=== PATIENT | male | born 1940 | race Caucasian/White ===

== ENCOUNTER 2018-01-16 12:06 | Observation (INO) ==
[2018-01-16] MEDS ORDERED: Metoprolol Tartrate 25 MG Tablet PO SCH (13:04)
[2018-01-16] MEDS ORDERED: Chlorhexidine Gluconate 2% 1 Pack (2 Cloths) TOPICAL SCH (13:04)
[2018-01-16] MEDS ORDERED: ceFAZolin 2 GM Premix Inj 2 GM/50 ML PIGGYBACK IV.SIG SCH (14:00)
[2018-01-16] MEDS ORDERED: Sodium Chlor 0.9% Inj 500 ML IV.SIG SCH (14:00)
[2018-01-16] MEDS ORDERED: Bupivacaine/Epinephrine 0.5% Inj 50 ML Vial ONE (15:18)
[2018-01-16] MEDS ORDERED: Gelatin Size 100 Topical Foam ONE (15:18)
[2018-01-16] MEDS ORDERED: Thrombin Topical Soln 5,000 UNIT Vial TOPICAL ONE (15:18)
[2018-01-16] MEDS ORDERED: methylPREDNISolone acetate 40 MG/ML VIAL ONE ×2 (15:18→15:26)
[2018-01-16] MEDS ORDERED: Neostigmine Inj 5 MG/5 ML Syringe IV.PUSH ONE (15:48)
[2018-01-16] MEDS ORDERED: Glycopyrrolate Inj 1 MG/5 ML Syringe IV.PUSH ONE (15:48)
[2018-01-16] MEDS ORDERED: Bisacodyl 10 MG Supp RECTAL PRN (16:12)
[2018-01-16] MEDS ORDERED: Acetaminophen 500 MG Tablet PO PRN (16:12)
--- NOTE | 2018-01-16 17:52 | P.OP ---
Preoperative Diagnosis: Lumbar spinal stenosis Postoperative Diagnosis: Lumbar spinal stenosis Date of procedure: 01/16/18 Procedure: Right L5-S1 hemilaminectomy, mesiofacetectomy, foraminotomy, microsurgical resection of the disk Anesthesia: FREDY Surgeon: David Griffith MD Turpentine Distiller: Marycarmen Payne Pathology: none sent Operation and Findings: INDICATIONS FOR THE SURGICAL PROCEDURE Mr Grigsby is a 77 year-old male who presented with intractable mechanical back pain and clinical evidence of right S1 lower extremity radiculopathy. He was found to have a disk herniation and extrusion significant stenosis with significant mass effect on the neural structures which correlated with the clinical symptoms. The patient has failed maximum nonsurgical management including multiple modalities of conservative treatment as well as pain management interventions by an interventional pain specialist. A surgical decompression were indicated as a last resort. The oxpl-[id number] details of the procedure, indications, alternatives, risks and potential complications were fully discussed with the patient. The patient fully understood. All the questions were answered. No guarantees were given. The patient voiced requesting the procedure and signed informed consents. He was offered the alternative of delaying the procedure and continuing with nonsurgical management. DETAILS OF THE SURGICAL PROCEDURE After the induction of general anesthesia, endotracheal intubation was performed. A Amaya catheter, bilateral CHERELLE hose and sequential compression devices were placed and kept throughout the procedure. The patient was positioned prone on a Alfie table over a Jai frame. All pressure points were carefully padded with eggcrate mattress. The eyes were tapped shut after ointment was applied by the anesthesiologist to prevent corneal abrasion. A Jaclyn hugger was placed over the exposed lower body to maintain control of the core body temperature. The lower lumbar region was prepped and draped in the usual sterile fashion. A spinal needle was placed for localization and an x- ray performed with a C-arm. A skin incision was made in the midline over the spinous processes L5-S1 with a #10 blade. Small subcutaneous bleeders were controlled with a bipolar and the dissection was carried out through the lumbar fascia exposing the spinous processes. A subperiosteal dissection was performed with a Phan elevator and a Bovie over the right L5-S1 spinous process lamina and facets. A microdiscectomy self-retaining retractor was placed on the incision and an x- ray was obtained with an instrument placed underneath the lamina. At this point in the procedure the operating microscope was draped in the usual sterile fashion and brought to the field. The rest of the surgical procedure was performed using microsurgical dissection technique with exception of the closure. Once the level was confirmed, a decompressive laminectomy was performed at L5- S1 on the right side, using the TPS drill with an AM-8 drill bit. A medial facetectomy was performed and the superior free border of the ligamentum flavum was dissected with a ligament dissector and removed with a thin footplate 2 mm Kerrison The medial facetectomy allowed me to expose the left S1 nerve root, which was identified and followed towards its exit in the foramen. Epidural veins located laterally to the dural sac were coagulated with a bipolar and incised with microscissors. Gentle medial retraction of the dural sac allowed inspection of the disc space. The patient had a disc herniation, causing mass effect over the exiting nerve root. The annulus fibrosus of the disc was coagulated with the bipolar and incised with an 11 blade. The extruded disc was carefully dissected from the surrounding tissue and removed with pituitary forceps. Then, a microdiscectomy was carried out in the standard fashion using straight and up-biting pituitary forceps. A good decompression of the dural sac and nerve root was achieved. The exit of the nerve root was inspected for residual disc fragments and hemostasis was secured with the bipolar. The incision was irrigated with a large amount of saline solution. A Valsalva maneuver failed to show any cerebrospinal fluid leak or bleeding. The decompression was assessed again and found to be satisfactory. 4m of Depomedrol was left over the epidural space. The incision was then closed in layers. The fascia was closed with 0 Vicryl sutures in an interrupted fashion. The superficial fascia was closed with 0 Vicryl sutures. The fascia was infiltrated with 0.5% Marcaine with epinephrine 1:100,000 dilution. The subcutaneous tissue was irrigated then closed with 0 Vicryl and 3-0 Vicryl. The skin was closed with 4-0 running subcuticular Vicryl. Dermabond was applied to the skin. A sterile dressing was applied. At the end of the procedure, the sponge, needle and instrument counts were all correct. Estimated blood loss was less than 50 cc. No blood transfusion was given. No intraoperative complications occurred. The patient received prophylactic antibiotics. The patient was then extubated and transferred to the recovery room in stable condition.
--- NOTE | 2018-01-16 17:52 | XR ---
EXAM DATE: 01/16/2018 12:00 AM EDT AGE/SEX: 77 years / Male INDICATIONS: Level localization for a lumbar laminectomy, L5-S1. CLINICAL DATA: This is the patient's initial encounter. Patient reports that signs and symptoms have been present for 1 day and indicates a pain score of Nonresponsive. MEDICAL/SURGICAL HISTORY: Non-responsive. Non-responsive. COMPARISON: No prior exams available for comparison. FINDINGS: There is a localization probe projecting posterior to the L5-S1 intervertebral disc space. CONCLUSION: Localization as above. Electronically signed by: Spenser Anthony MD 01/16/2018 5:51 PM EDT
[2018-01-16] MEDS: Sod Chloride 0.9% Inj 1,000 ML IV.CONT SCH (17:59)
[2018-01-16] MEDS ORDERED: Morphine Inj 4 MG/ML Vial ONE (18:20)
[2018-01-16] MEDS ORDERED: fentaNYL Citrate Inj 100 MCG/2 ML Ampul ONE (18:20)
[2018-01-16] MEDS ORDERED: *morphine SULFATE 4 MG/ML PERIprocedure ONLY ONE (18:34)
[2018-01-16] MEDS: Senna/Docusate Sodium 8.6/50 MG Tablet PO SCH (20:53)
[2018-01-17] MEDS: Sod Chloride 0.9% Inj 1,000 ML IV.CONT SCH ×2 (03:59→05:21)
[2018-01-17 05:02] VITALS: TEMP 97.5
[2018-01-17] MEDS: Senna/Docusate Sodium 8.6/50 MG Tablet PO SCH (08:34)
[2018-01-17] MEDS ORDERED: Calcium/Vitamin D 250/125 MG Tablet PO SCH (09:00)
[2018-01-17] MEDS ORDERED: amLODIPine 10 MG Tablet PO SCH (09:00)
[2018-01-17] MEDS ORDERED: Non-Formulary Drug (Omega 3-Dha-Epa-Fish Oil [Omega-3] 1 CAP) PO SCH (09:00)
[2018-01-17] MEDS ORDERED: Lisinopril 20 MG Tablet PO SCH (09:00)
[2018-01-17] MEDS ORDERED: Fenofibrate 145 MG Tablet PO SCH (09:00)
[2018-01-17 09:34] VITALS: BP 141/67; PULSE 66; O2SAT 97
[2018-01-17 09:36] VITALS: RESP 18
--- NOTE | 2018-01-23 11:41 | P.DS ---
Date of admission: 01/16/18 16:38 Primary care physician: Gayle Primary Care Physician Brief History from admission: Mr Grigsby is a 77 year-old male who presented with intractable mechanical back pain and clinical evidence of right S1 lower extremity radiculopathy. He was found to have a disk herniation and extrusion significant stenosis with significant mass effect on the neural structures which correlated with the clinical symptoms. The patient has failed maximum nonsurgical management including multiple modalities of conservative treatment as well as pain management interventions by an interventional pain specialist. A surgical decompression were indicated as a last resort. DS: Summary Hospital Course: Mr. Grigsby underwent Right L5-S1 hemilaminectomy, mesiofacetectomy, foraminotomy, microsurgical resection of the disk for Lumbar spinal stenosis on 01/16/18. His surgery went well without complications and he was discharged home in stable conditions. - Time Spent with Patient Total time spent providing and/or coordinating discharge services: Less than 30 minutes - Quality: VTE Deep Vein Thrombosis/Pulmonary Embolism Present on Admission: No Results Procedures completed during hospitalization: Right L5-S1 hemilaminectomy, mesiofacetectomy, foraminotomy, microsurgical resection of the disk - Impressions ITS Impressions Lumbar Spine X-Ray 01/16/18 00:00 CONCLUSION: Localization as above. Discharge Plan - Discharge Disposition Patient Disposition: 01 Discharge Home - Discharge Order Discharge Orders: Discharge Order (Routine); Ordered 01/17/18 Ordered By: Radha Vargas - Physicians Team Primary Care Provider: Primary Care Gayle Bojorquez Attending Provider: David Griffith - Rxs /Orders / Referrals /Forms Prescriptions: New amlodipine [Norvasc] 10 mg Tablet 10 mg PO DAILY RF: 0 metoprolol tartrate 25 mg Tablet 25 mg PO RENTAL COORDINATOR RF: 0 Continue acetaminophen [Acetaminophen Extra Strength] 500 mg Tablet 500 mg PO Q6H PRN (Reason: Pain) amlodipine 10 mg Tablet 10 mg PO DAILY benazepril 20 mg Tablet 20 mg PO DAILY Ca-D3-mag [id number]-pnq-angela-bor [Calcium 600-D3 Plus] 600 mg calcium- 800 unit -50 mg Tablet 1 ophthalmic insert PO DAILY fenofibrate micronized 200 mg Capsule 200 mg PO DAILY omega 7-vqk-zor-fish oil [[place]-3] 350 mg-235 mg- 90 mg-597 mg Capsule, Delayed Release(Dr/Ec) 1 cap PO DAILY pravastatin 40 mg Tablet 40 mg PO DAILY Referrals: Primary Care Gayle Bojorquez [Primary Care Provider] - See Instructions - Discharge Instructions Patient Printed Instructions: Laminectomy (DC), How To Wash Your Hands (DC), Fall Prevention (DC), Lumbar Corset (DC), Deep Vein Thrombosis Prevention (DC) Additional Instructions: TAKE MEDS PRESCRIBED FOLLOW UP SCHEDULED - Post Discharge Care Plan Care Plan Goals: Your Health Problems: Goals to Promote Your Health: * To prevent worsening of your condition * To maintain your health at the optimal level Directions to Meet Your Goals: * Take your medications as prescribed * Follow your dietary instruction * Follow activity as directed * Keep your appointments as scheduled * Take your immunizations and boosters as scheduled * If your symptoms worsen call your PCP * If no PCP go to Urgent Care or Emergency Room Smoking is dangerous to your health. Avoid second hand smoke. You may reach the 24-hour crisis hotline for domestic abuse at .
== END 2018-01-17 15:13 | disposition home or self-care (01) ==
LOC: HSDC 12:06 → HSDI 12:06 → N06 19:11
PROVIDERS: ADMIT Neurological Surgery; ATTEND Neurological Surgery